=== PATIENT | male | born 1950 | race Hispanic/Latino ===

== ENCOUNTER 2018-02-24 18:29 | Emergency (ER) | payer MEDICARE, OTHER ==
[2018-02-24 18:30] VITALS: BMI 21.7
[2018-02-24 19:06] VITALS: BP 141/52; PULSE 53; RESP 18; TEMP 97.9; O2SAT 100
[2018-02-24] MEDS ORDERED: PROPARACAINE/FLUORESCEIN SOD 100 DROP/5 ML BOTTLE OS STA (19:43)
--- NOTE | 2018-02-24 20:27 | ED PDOC ---
HPI: Eye Injury/Pain Time Seen by Provider: 02/24/18 19:25 Chief Complaint (Nursing): Eye Problem Chief Complaint (Provider): left eye injury History Per: Patient History/Exam Limitations: no limitations Onset/Duration Of Symptoms: Hrs (x2 [employer]) Current Symptoms Are (Timing): Still Present Severity: Mild Pain Scale Rating Of: 6 Associated Symptoms: denies: Decreased Vision Additional Complaint(s): Catalino Dalal is a 67 year old male, with a past medical history of CAD, cognitive impairment, seizure disorder, skin and prostate cancer, who presents to the emergency department for evaluation of left eye injury onset x2 hrs prior to arrival. Patient state he was opening a cabinet and hit him in the left eye. He reports a mild amount of pain and ranks it a 6/10. He noticed a large blood blister to the eye subsequent to that. He is currently on Plavix and aspirin. He denies any visual impairment from injury or other medical complaints. PMD: Giovanni Stephens Past Medical History Reviewed: Historical Data, Nursing Documentation, Vital Signs Vital Signs: Last Vital Signs Temp 97.9 F 02/24/18 19:03 Pulse 53 L 02/24/18 19:03 Resp 18 02/24/18 19:03 BP 141/52 L 02/24/18 19:03 Pulse Ox 100 02/24/18 19:03 - Medical History PMH: Anxiety, Arthritis, CAD, HTN, Seizures, Chronic Pain (Back pain) Denies: HIV, Chronic Kidney Disease Other PMH: skin and prostate cancer - Surgical History Surgical History: Coronary Stent - Family History Family History: States: Unknown Family Hx - Social History Current smoker - smoking cessation education provided: No Alcohol: None Drugs: Denies - Home Medications Home Medications: Ambulatory Orders Medication Instructions Recorded Alprazolam [Xanax] 0.5 mg PO HS 07/22/14 Isosorbide Mononitrate [Imdur] 30 mg PO HS 07/22/14 Lamotrigine [Lamictal] 300 mg PO BID 07/22/14 Losartan/Hydrochlorothiazide 1 tab PO HS 07/22/14 [Hyzaar 100-12.5 Tablet] Nitroglycerin [Nitrostat] 0.4 mg SL Q5MIN PRN 07/22/14 Simvastatin [Zocor] 40 mg PO DAILY 07/22/14 Tamsulosin [Flomax] 0.4 mg PO DAILY 07/22/14 Metoprolol Succinate XL [Toprol XL] 25 mg PO DAILY 04/22/15 Acetaminophen with Codeine 1 tab PO Q6H PRN #10 tab 09/06/15 [Tylenol with Codeine No. 3 300 mg-30 mg] Ofloxacin Ophth 0.3% [Ocuflox 2 drop OS QID #1 bottle 02/24/18 Ophth 0.3%] - Allergies Allergies/Adverse Reactions: Allergies Allergy/AdvReac Type Severity Reaction Status Date / Time Penicillins Allergy RASH Verified 02/24/18 19:03 Review of Systems ROS Statement: Except As Marked, All Systems Reviewed And Found Negative Eyes: Positive for: Other (left eye injury) Physical Exam - Reviewed Nursing Documentation Reviewed: Yes Vital Signs Reviewed: Yes - Physical Exam Appears: Positive for: No Acute Distress (comfortable) Head Exam: Positive for: ATRAUMATIC, NORMAL INSPECTION, NORMOCEPHALIC Skin: Positive for: Normal Color, Warm, Dry Eye Exam: Positive for: PERRL (bilaterally), Other (Large left subconjunctival hemorrhage. No active bleeding. Stain shows corneal abrasion at 9 o'clock) Neck: Positive for: Painless ROM Extremity: Positive for: Normal ROM (upper and lower extremities). Negative for : Deformity, Swelling Neurologic/Psych: Positive for: Alert, Oriented - ECG O2 Sat by Pulse Oximetry: 100 (RA) Pulse Ox Interpretation: Normal Medical Decision Making Medical Decision Making: Time: 19:25 Initial Impression: 67 y/o male with acute subconjunctival hemorrhage in setting of eye injury. Initial Plan: --Orbits/Facials w/o contrast [CT] --Flucaine Eye drops 4 drops OS --Reevaluation 21:[address] FINDINGS: Orbits: The left globe is unremarkable. Sinuses: Small amount of fluid in the sphenoid sinus. Bones/joints: No acute fracture. Soft tissues: Unremarkable. IMPRESSION: No acute findings. 21:45 -Patient was placed on an eye patch and is medically stable for discharge home. Patient diagnosed with shahla abrasion and subconjunctival hemorrhage of left eye. Patient advised to follow up with his own conventional underwriter, Dr. Harris. ----- Scribe Attestation: Documented by Joe Doan, acting as a scribe for Floyd Owen MD. Provider Scribe Attestation: All medical record entries made by the Scribe were at my direction and personally dictated by me. I have reviewed the chart and agree that the record accurately reflects my personal performance of the history, physical exam, medical decision making, and the department course for this patient. I have also personally directed, reviewed, and agree with the discharge instructions and disposition. Disposition - Clinical Impression Clinical Impression: Subconjunctival hemorrhage of left eye, Corneal abrasion - Disposition Disposition: Routine/Home Disposition Time: 21:45 Condition: STABLE Prescriptions: Ofloxacin Ophth 0.3% [Ocuflox Ophth 0.3%] 2 drop OS QID #1 bottle Instructions: Corneal Abrasion, Subconjunctival Hemorrhage Forms: [employer] ([employer])
--- NOTE | 2018-02-25 08:38 | CT ---
Date of service: 02/24/2018 PROCEDURE: CT MAXILLOFACIAL BONES WITHOUT CONTRAST HISTORY: left orbit injury COMPARISON: None available. TECHNIQUE: Contiguous axial CT images of the maxillofacial bones were obtained. Coronal and sagittal reformats were generated. Radiation dose: Total exam DLP = mGy-cm. This CT exam was performed using one or more of the following dose reduction techniques: Automated exposure control, adjustment of the mA and/or kV according to patient size, and/or use of iterative reconstruction technique. FINDINGS: NASAL BONES: Unremarkable. ORBITS: Unremarkable. PARANASAL SINUSES/ MASTOIDS: Clear. MAXILLA: Unremarkable. MANDIBLE/ TEMPOROMANDIBULAR JOINTS: Unremarkable. SKULL BASE: Unremarkable. TEMPORAL BONES: Middle ears and mastoid grossly unremarkable. OTHER FINDINGS: Vascular calcifications. IMPRESSION: No fracture.
== END 2018-02-24 21:57 | disposition home or self-care (01) ==
LOC: H.ER 18:29
DX: S05.02XA Injury of conjunctiva and corneal abrasion without foreign body, left eye, initial encounter (principal); W22.8XXA Striking against or struck by other objects, initial encounter; Y92.89 Other specified places as the place of occurrence of the external cause; H11.32 Conjunctival hemorrhage, left eye; F41.9 Anxiety disorder, unspecified; G89.29 Other chronic pain; I10 Essential (primary) hypertension; Z85.46 Personal history of malignant neoplasm of prostate; Z88.0 Allergy status to penicillin; Z95.5 Presence of coronary angioplasty implant and graft